=== PATIENT | male | born 1970 | race Caucasian/White ===

== ENCOUNTER → 2021-12-11 17:21 | Outpatient (CLI) | payer BC, SELFPAY ==
--- NOTE | ~2021-12-11 | MR_ITS ---
EXAMINATION: MR lumbar spine wo con DATE: 12/11/2021 18:11 INDICATION: Acute bilateral low back pain with left-sided sciatica. TECHNIQUE: Magnetic resonance imaging (MRI) of the lumbar spine was performed without intravenous con trast. Sequences included sagittal T2-weighted FSE, sagittal T2-weighted FS FSE, sagittal T1-weighted FSE, and axial T2-weighted FSE. COMPARISON: None FINDINGS: There is 7 degrees dextrocurvature of lumbar spine. There is 3 mm retrolisthesis of L3 on L 4. Vertebral body heights are normal. There is moderately decreased disc height at L3-L4 and mildly d ecreased disc height at L4-L5 and L5-S1. Epidural lipomatosis is noted. The distal spinal cord signal intensity is normal. The conus medullaris is at T12. The following disc levels are specifically disc ussed: L1-L2: The disc does not extend beyond the endplate margin. There is mild right facet joint osteoarth ritis. There is no neural foraminal stenosis. There is no central canal stenosis. L2-L3: The disc does not extend beyond the endplate margin. There is mild bilateral facet joint osteo arthritis. There is no neural foraminal stenosis. There is no central canal stenosis. L3-L4: The disc is bulging and has an annular fissure. There is mild bilateral facet joint osteoarthr itis. There is mild right and moderate left neural foraminal stenosis. There is mild central canal st enosis. There is moderate stenosis of left lateral recess. L4-L5: The disc is bulging. There is mild bilateral facet joint osteoarthritis. There is mild bilater al neural foraminal stenosis. There is mild central canal stenosis. L5-S1: The disc is bulging and has an annular fissure. There is mild bilateral facet joint osteoarthr itis. There is moderate bilateral neural foraminal stenosis. There is mild central canal stenosis. IMPRESSION: 1. Moderate lumbar spondylosis. Reviewed, dictated and finalized at location B.
== END ==
PROVIDERS: PCP Physician Assistant; Visit Provider Physician Assistant
DX: M54.42 Lumbago with sciatica, left side (principal); M47.896 Other spondylosis, lumbar region
CPT/HCPCS: 72148

== ENCOUNTER → 2022-07-04 15:41 | Outpatient (CLI) | payer BC, SELFPAY ==
--- NOTE | ~2022-07-04 | CT_ITS ---
EXAMINATION: CT lumbar spine wo con DATE: 07/04/2022 15:59 INDICATION: Other symptoms and signs involving the musculoskeletal system. Left leg weakness. TECHNIQUE: Computed tomography (CT) of the lumbar spine was performed without intravenous contrast. A utomated exposure control and iterative reconstruction technique were employed. The dose-length produ ct was 913.61 mGy-cm. COMPARISON: Lumbar spine MRI 12/11/2021 FINDINGS: There is 10 degrees dextroscoliosis of lumbar spine. Vertebral body heights are normal. The re is moderately decreased disc height at L3-L4 and mildly decreased disc height at L4-L5 and L5-S1. Osseous central spinal canal is developmentally small. The following disc levels are specifically dis cussed: L1-L2: The disc does not extend beyond the endplate margin. There is mild bilateral facet joint osteo arthritis. There is no neural foraminal stenosis. There is no central canal stenosis. L2-L3: The disc does not extend beyond the endplate margin. There is severe right and mild left facet joint osteoarthritis. There is no neural foraminal stenosis. There is mild central canal stenosis. L3-L4: The disc is bulging. There is moderate right and mild left facet joint osteoarthritis. There i s moderate bilateral neural foraminal stenosis. There is moderate central canal stenosis. L4-L5: The disc is bulging. There is mild bilateral facet joint osteoarthritis. There is mild bilater al neural foraminal stenosis. There is mild central canal stenosis. L5-S1: The disc is bulging. There is moderate right and mild left facet joint osteoarthritis. There i s moderate bilateral neural foraminal stenosis. There is mild central canal stenosis. IMPRESSION: 1. Moderate lumbar spondylosis. 2. Lumbar dextroscoliosis. Reviewed, dictated and finalized at location A. NT [employer]GER
== END ==
PROVIDERS: PCP Physician Assistant; Visit Provider Neurological Surgery
DX: R29.898 Other symptoms and signs involving the musculoskeletal system (principal); M47.896 Other spondylosis, lumbar region
CPT/HCPCS: 72131

== ENCOUNTER 2022-11-05 07:16 | Outpatient (CLI) | payer BC, SELFPAY ==
--- NOTE | ~2022-11-05 | MR_ITS ---
EXAMINATION: MR lumbar spine wo/w con DATE: 11/05/2022 08:46 INDICATION: Left lower limb weakness TECHNIQUE: Magnetic resonance imaging (MRI) of the lumbar spine was performed without and with 20 mL Multihance intravenous contrast. Sequences included sagittal T2-weighted FSE, sagittal T2-weighted FS FSE, and sagittal and axial T1-weighted FSE. Postcontrast sequences included axial T2-weighted FSE, sagittal T1-weighted FSE, and axial and sagittal T1-weighted FS FSE. COMPARISON: None FINDINGS: 15 degree lumbar dextroscoliosis. 4 mm retrolisthesis L5 on S1. 1 mm retrolisthesis L3 on L4 and L4 o n L5. Vertebral body heights are normal. Moderate left-sided predominant disc height loss with associ ated mild fibrovascular degenerative endplate changes at L3-L4. Additional mild disc height loss at L 4-L5 and L5-S1. The conus medullaris terminates at T12. There is normal signal in the visualized caud al aspect of the conus. There is residual postoperative edema and non-masslike enhancement along the left paraspinal musculature at the level of L3-L4. There is localized enhancement with irregular sara ins along the left side of the L3-L4 disc space consistent with interval discectomy. Denervation young ge with mild atrophy and increased muscle signal in the left paraspinal musculature extending inferio rly from the surgical tract. The following disc levels are specifically discussed: T12-L1: Disc is mildly bulging. There is mild right and minimal left facet joint osteoarthritis. Ther e is no neural foraminal stenosis. There is minimal central canal stenosis. L1-L2: The disc does not extend beyond the endplate margin. There is mild right and minimal left face t joint osteoarthritis. There is no neural foraminal stenosis. There is no central canal stenosis. L2-L3: The disc does not extend beyond the endplate margin. There is mild to moderate right and mild left facet joint osteoarthritis. There is mild left and minimal right neural foraminal stenosis. Ther e is mild central canal stenosis. L3-L4: Disc is bulging with annular fissure. There is mild left and moderate right facet joint osteoa rthritis. There is unchanged mild right and slightly decreased but still moderate left neural foramin al stenosis. There is negligible decrease in moderate central canal stenosis. L4-L5: Disc is mildly bulging. There is mild bilateral facet joint osteoarthritis. There is mild righ t and mild to moderate left neural foraminal stenosis. There is mild central canal stenosis. L5-S1: Disc is bulging with annular fissure. There is mild to moderate bilateral facet joint osteoart hritis. There is moderate bilateral neural foraminal stenosis. There is mild central canal stenosis. IMPRESSION: 1. 15 degree lumbar dextroscoliosis with moderate spondylosis most notable for minimal decrease in st ill moderate neural left neural foraminal stenosis at L3-L4 post interval left sided likely partial d iscectomy. Reviewed, dictated and finalized at location L. IMPRESSION: 1. 15 degree lumbar dextroscoliosis with moderate spondylosis most notable for minimal decrease in still moderate neural left neural foraminal stenosis at L3- L4 post interval left sided likely partial discectomy.
== END 2022-11-05 07:17 | disposition home or self-care (01) ==
PROVIDERS: PCP Physician Assistant; Visit Provider Neurological Surgery
DX: R29.898 Other symptoms and signs involving the musculoskeletal system (principal); M47.896 Other spondylosis, lumbar region
CPT/HCPCS: 72158; A9577